=== PATIENT | male | born 1985 | race American Indian/Alaskan Native ===

== ENCOUNTER 2018-01-07 17:19 | Emergency (ER) | payer OTHER ==
[2018-01-07 17:27] VITALS: BP 144/89
[2018-01-07 17:40] LABS: BILIRUBIN,URINE NEGATIVE (NEGATIVE); GLUCOSE, URINE (UA) NEGATIVE (NEGATIVE); KETONES,URINE (UA) NEGATIVE (NEGATIVE); LEUKOCYTE ESTERASE, URINE TRACE (NEGATIVE); NITRITE,URINE NEGATIVE (NEGATIVE); OCCULT BLOOD,URINE TRACE-LYSE (NEGATIVE); PH,URINE 6.5 PH (5.0-7.5); PROTEIN,URINE NEGATIVE (NEGATIVE); UROBILINOGEN,URINE 0.2 (NORMAL) E.U./dL (NORMAL)
[2018-01-07 17:49] LABS: CLARITY,URINE CLEAR (CLEAR); RBC,URINE 0-5 /HPF (0-5); WBC CLUMPS,URINE PRESENT
[2018-01-07 17:50] LABS: BACTERIA,URINE None Seen /HPF (None Seen); SQUAMOUS EPITHELIAL CELL,UR NONE SEEN (<= Few)
[2018-01-07] MEDS ORDERED: DOXYCYCLINE 100 MG TABLET PO STA (18:27)
--- NOTE | 2018-01-07 18:27 | ED Physician Documentation ---
PD HPI MALE - Stated complaint Stated Complaint: MALE - Chief complaint Chief Complaint: UTI - History obtained from History obtained from: Patient - History of Present Illness Timing - onset: How many days ago (4) Timing - details: Still present Pain level max: 0 Pain level now: 0 Associated symptoms: Dysuria, Urinary frequency, Discharge PD HPI MALE CONTRIB FACTORS: Sexually active, Exposed to STD - Additional information Additional information: Patient is a 32 year old male who presents to the emergency department c/o of UTI symptoms like urinary frequency and urgency along with concerns of STD. States that he recently had a new sexual partner beginning 3 weeks ago. Did not wear a condom. Admitting there is some white-colored discharge. Review of Systems Constitutional: denies: Fever, Chills Throat: denies: Sore throat Respiratory: denies: Cough GI: denies: Abdominal Pain, Nausea, Vomiting, Diarrhea Skin: denies: Rash Musculoskeletal: denies: Neck pain, Back pain Neurologic: denies: Headache PD PAST MEDICAL HISTORY - Past Medical History Past Medical History: Yes Psych: Depression, Anxiety - Past Surgical History Past Surgical History: Yes HEENT: Myringotomy (tubes), Tonsil/Adenoidectomy - Present Medications Home Medications: Ambulatory Orders Medication Instructions Recorded Confirmed Doxycycline Hyclate 100 mg PO BID #20 capsule 01/07/18 Escitalopram Oxalate [Lexapro] 20 mg PO DAILY 01/07/18 01/07/18 Lorazepam [Ativan] 1 mg PO TID PRN 01/07/18 01/07/18 busPIRone [Buspar] 30 mg PO BID 01/07/18 01/07/18 - Allergies Allergies/Adverse Reactions: Allergies Allergy/AdvReac Type Severity Reaction Status Date / Time cefaclor [From Ceclor] Allergy Rash Verified 01/07/18 17:27 cyclobenzaprine Allergy Rash Verified 01/07/18 17:27 [Cyclobenzaprine] Penicillins AdvReac Unknown Verified 01/07/18 17:27 - Living Situation Living Situation: reports: With family Living Arrangement: reports: At home - Social History Does the pt smoke?: No Smoking Status: Never smoker Does the pt drink ETOH?: No Does the pt have substance abuse?: No - Family History Family history: reports: Non contributory - Immunizations Immunizations are current?: Yes PD ED PE NORMAL - Vitals Vital signs reviewed: Yes - General General: Alert and oriented X 3, No acute distress - HEENT HEENT: Atraumatic, PERRL, Moist mucous membranes - Neck Neck: Supple, no meningeal sign - Abdomen Abdomen: Soft, Non tender, Non distended - Male Male : Other (normal genital exam. normal tesicles. no rash. no LAD. ) - Back Back: No CVA TTP, No spinal TTP - Derm Derm: Warm and dry - Extremities Extremities: No deformity - Neuro Neuro: Alert and oriented X 3, Normal speech - Psych Psych: Normal mood, Normal affect Results - Vitals Vitals: Vital Signs - 24 hr 01/07/18 17:24 Temperature 36.5 C Heart Rate 74 Respiratory 18 Rate Blood Pressure 144/89 H O2 Saturation 99 Oxygen O2 Source Room air - Labs Labs: Laboratory Tests 01/07/18 17:31 Urine Color YELLOW Urine Clarity CLEAR Urine pH 6.5 Ur Specific [place] <=1.005 Urine Protein NEGATIVE Urine Glucose (UA) NEGATIVE Urine Ketones NEGATIVE Urine Occult Blood TRACE-LYSE Urine Nitrite NEGATIVE Urine Bilirubin NEGATIVE Urine Urobilinogen 0.2 (NORMAL) Ur Leukocyte Esterase TRACE H Urine RBC 0-5 Urine WBC >25 H Urine WBC Clumps PRESENT Ur Squamous Epith Cells NONE SEEN Urine Bacteria None Seen Ur Microscopic Review INDICATED Urine Culture Comments INDICATED PD MEDICAL DECISION MAKING - ED course Complexity details: reviewed results, considered differential, d/w patient ED course: Patient is a 32-year-old male who presents to the emergency department with dysuria, possible STD exposure. Does appear to have a UTI and will treat for possible chlamydia so will utilize doxycycline. We will have him follow-up with his doctor for full STD testing including HIV testing. He is well-appearing, nontoxic. Afebrile. Gonorrhea and Chlamydia testing were sent. Counseled to use condoms for sexual activity. Patient counseled regarding signs and symptoms for which I believe and urgent re-evaluation would be necessary. Patient with good understanding of and agreement to plan and is comfortable going home at this time This document was made in part using voice recognition software. While efforts are made to proofread this document, sound alike and grammatical errors may occur. - Sepsis Event Vital Signs: Vital Signs - 24 hr 01/07/18 17:24 Temperature 36.5 C Heart Rate 74 Respiratory 18 Rate Blood Pressure 144/89 H O2 Saturation 99 Oxygen O2 Source Room air Departure - Departure Disposition: Home, Self Care Clinical Impression: UTI (urinary tract infection) Qualifiers: Urinary tract infection type: acute cystitis Hematuria presence: without hematuria Qualified Code(s): N30.00 - Acute cystitis without hematuria Condition: Good Instructions: ED UTI Cystitis Male Follow-Up: your,doctor in 1 week [Other] Prescriptions: Doxycycline Hyclate 100 mg PO BID #20 capsule Comments: Take all antibiotics until gone. Return if you worsen. Your urine was sent for gonorrhea and Chlamydia testing. If these are positive you will receive a phone call. You should also have further STD testing including HIV testing performed with your doctor. Use condoms for sexual activity. Discharge Date/Time: 01/07/18 18:34
== END 2018-01-07 18:34 | disposition home or self-care (01) ==
LOC: ED 17:19
DX: N30.00 Acute cystitis without hematuria (principal)
CPT/HCPCS: 81001; 87086; 87491; 87591; 99283; A9270; 81003